=== PATIENT | female | born 1955 ===

== ENCOUNTER 2018-12-04 08:13 | Day surgery (SDC) | payer MEDICARE, OTHER ==
[2018-12-03 09:10] VITALS: BMI 20.3
[2018-12-04 09:16] VITALS: TEMP 97
--- NOTE | 2018-12-04 10:05 | CP.SDSHP ---
Same Day Surgery H & P - History Proposed Procedure: colonoscopy Pre-Op Diagnosis: screening for colon cancer - Previous Medical/Surgical History Cardiac: Hypertension, Other (hypercholesterolemia, ) Misc: Other (Psoriasis, glaucoma, osteoporosis) Previous Surgical History: Cholecystectomy - Allergies Allergies: Allergies No Known Allergies Allergy (Verified 12/04/18 08:51) - Physical Exam Vital Signs: Vital Signs 12/04/18 09:04 Temperature 97 F L Pulse Rate 60 Respiratory 19 Rate Blood Pressure 122/72 O2 Sat by Pulse 99 Oximetry Mental Status: Alert & Oriented x3 Neuro: WNL Heart: WNL Lungs: WNL GI: WNL - Impression Impression: screening for colon cancer Pt. Evaluated Today:Candidate for Anesthesia & Procedure: Yes - Date & Time Date: 12/04/18 Time: 10:07 Short Stay Discharge - Short Stay Discharge Admitting Diagnosis/Reason for Visit: ENCOUNTER FOR SCREENING FOR MALIGNANT NEOPLASM OF Disposition: HOME/ ROUTINE Referrals: Randy Johnson MD [Primary Care Provider] -
[2018-12-04] MEDS ORDERED: Propofol 10 mg/ml Inj (20 ML) ONE ×2 (10:11→10:23)
[2018-12-04 12:56] VITALS: RESP 20; O2SAT 99
[2018-12-04 13:00] VITALS: BP 140/78; PULSE 68
== END 2018-12-04 12:30 | disposition home or self-care (01) ==
LOC: C.ENDO 08:13
PROVIDERS: ATTEND Internal Medicine Gastroenterology
DX: Z12.11 Encounter for screening for malignant neoplasm of colon (principal); R19.4 Change in bowel habit; K59.00 Constipation, unspecified; D12.2 Benign neoplasm of ascending colon; K57.90 Diverticulosis of intestine, part unspecified, without perforation or abscess without bleeding
CPT/HCPCS: 45380; 45384; 88305; J2704